=== PATIENT | male | born 1995 | race Caucasian/White ===

== ENCOUNTER 2018-09-10 18:49 | Emergency (ER) | payer OTHER ==
[~2018-09-10] VITALS: Ht 170.2 cm; Wt 99.8 kg
[~2018-09-10 18:49] MED LIST: Percocet 5-3251 EACH PO
== END 2018-09-10 19:29 | disposition home or self-care (01) ==
LOC: ER 18:49
DX: S93.402A Sprain of unspecified ligament of left ankle, initial encounter (principal); X50.9XXA Other and unspecified overexertion or strenuous movements or postures, initial encounter; F17.220 Nicotine dependence, chewing tobacco, uncomplicated
CPT/HCPCS: 73610; 99283-25

== ENCOUNTER → 2021-11-23 | Outpatient (CLI) | payer OTHER ==
[2021-11-25 01:07] LABS: CHLAMYDIA TRACHOMATIS, NAA Negative (Negative)
== END | disposition home or self-care (01) ==
LOC: LAB 11:40 → LAB SHORT 11:40
PROVIDERS: Physician Assistant
DX: Z20.9 Contact with and (suspected) exposure to unspecified communicable disease (principal)
CPT/HCPCS: 87491; 87591

== ENCOUNTER → 2023-08-29 | Outpatient (CLI) | payer OTHER ==
[2023-08-31 07:24] LABS: APTIMA MEDIA TYPE Urine; C. TRACHOMATIS BY TMA Negative (Negative); N. GONORRHOEAE BY TMA Negative (Negative); SPECIMEN SOURCE Urine
== END ==
LOC: LAB SHORT 13:42 → LAB 13:42
PROVIDERS: Physician Assistant
DX: R30.0 Dysuria (principal); N34.1 Nonspecific urethritis
CPT/HCPCS: 87086; 87491; 87591